=== PATIENT | male | born 1965 | race Caucasian/White ===

== ENCOUNTER 2018-01-27 13:35 | Emergency (ER) | payer SELFPAY ==
[2018-01-27] MEDS ORDERED: Aspirin 325 MG Tab PO ONE (13:48)
[2018-01-27] MEDS ORDERED: Nitroglycerin 0.4 MG Tab.SL SL ONE (13:50)
[2018-01-27] MEDS ORDERED: Sodium Chloride 0.9% 1,000 ML IV ONE (13:51)
--- NOTE | 2018-01-27 13:55 | EDM.PDOC ---
ED HPI GENERAL MEDICAL PROBLEM - General Chief Complaint: Chest Pain Stated Complaint: CHEST PAIN Time Seen by Provider: 01/27/18 13:40 - History of Present Illness INITIAL COMMENTS - FREE TEXT/NARRATIVE: HISTORY AND PHYSICAL: History of present illness: The patient is a 52-year-old male who presents to the ER with chest pressure and left arm tingling. The patient reports he initially presented to the [facility] with the arm tingling. They were concerned about his heart and sent him to the ER. He reports 3-4 day history of chest pressure and tightness with associated tingling in the left arm. He has associated shortness of breath but no nausea, vomiting or diaphoresis. He has no history of trauma or injury to the left shoulder/arm. He has no significant cardiac history and is a nonsmoker. He reports he does not have a significant past medical history. He is not on any medications currently. He does note that he has been very stressed at work lately. Review of systems: As per history of present illness and below otherwise all systems reviewed and negative. Past medical history: As per history of present illness and as reviewed below otherwise noncontributory. Surgical history: As per history of present illness and as reviewed below otherwise noncontributory. Social history: No reported history of drug or alcohol abuse. Family history: As per history of present illness and as reviewed below otherwise noncontributory. Physical exam: HEENT: Atraumatic, normocephalic, pupils reactive, negative for conjunctival pallor or scleral icterus, mucous membranes moist, throat clear, neck supple, nontender, trachea midline. Lungs: Clear to auscultation, breath sounds equal bilaterally, chest nontender. Heart: S1S2, regular, negative for clicks, rubs, or JVD. Abdomen: Soft, nondistended, nontender. Negative for masses or hepatosplenomegaly. Negative for costovertebral tenderness. Pelvis: Stable nontender. Genitourinary: Deferred. Rectal: Deferred. Extremities: Atraumatic, negative for cords or calf pain. Neurovascular unremarkable. Neuro: Awake, alert, oriented. Cranial nerves II through XII unremarkable. Cerebellum unremarkable. Motor and sensory unremarkable throughout. Exam nonfocal. Diagnostics: [EKG, CBC, CMP, troponin, chest x-ray] Therapeutics: [325 mg of aspirin ] Impression: [chest pain] Plan: [Patient's chest pain resolved while in the ER and his initial troponin was negative. He received one time dose of aspirin. He did not require nitro as his chest pain had resolved by the time it was to be given. He was offered admission for observation and ACS rule out, but he declined. He stated he did not want to be admitted. He thinks this was all related to stress at his job and anxiety. He will be discharged home. He should follow-up with his PCP. He should return to the ER if he develops any chest pain again.] Definitive disposition and diagnosis as appropriate pending reevaluation and review of above. chest Pain Score (Numeric/FACES): 3 - Related Data Allergies Allergy/AdvReac Type Severity Reaction Status Date / Time No Known Allergies Allergy Verified 01/27/18 13:46 Home Meds: Home Meds . [No Known Home Meds] 01/27/18 [History] Past Medical History Other Musculoskeletal History: cervical fx 2009 - Past Surgical History Other Neurological Surgeries/Procedures: 2009 ED ROS GENERAL - Review of Systems Review Of Systems: See Below (See dictation) ED EXAM, GENERAL - Physical Exam Exam: See Below (See dictation) Course - Vital Signs Last Recorded V/S: Last Vital Signs Temp 96.4 F 01/27/18 13:47 Pulse 62 01/27/18 14:32 Resp 15 01/27/18 14:32 BP 145/82 H 01/27/18 14:32 Pulse Ox 97 01/27/18 14:32 - Orders/Labs/Meds Orders: Active Orders 24 hr Category Date Time Status EKG 12 Lead [EKG Documentation Completion] [RC] STAT Care 01/27/18 13:51 Active Sodium Chloride 0.9% [Normal Saline] 1,000 ml Med 01/27/18 13:51 Active IV STAT Medication Orders Sodium Chloride (Normal Saline) 1,000 mls @ 125 mls/hr IV STAT ONE Stop: 01/27/18 21:50 Last Admin: 01/27/18 14:03 Dose: 125 mls/hr Labs: Laboratory Tests 01/27/18 01/27/18 Range/Units 13:53 13:53 WBC 6.84 (4.0-11.0) K/uL RBC 5.18 (4.50-5.90) M/uL Hgb 15.5 (13.0-17.0) g/dL Hct 44.3 (38.0-50.0) % MCV 85.5 (80.0-98.0) fL MCH 29.9 (27.0-32.0) pg MCHC 35.0 (31.0-37.0) g/dL RDW Std Deviation 39.7 (28.0-62.0) fl RDW Coeff of Minh 13 (11.0-15.0) % Plt Count 173 (150-400) K/uL MPV 9.90 (7.40-12.00) fL Neut % (Auto) 57.8 (48.0-80.0) % Lymph % (Auto) 31.1 (16.0-40.0) % [place] % (Auto) 10.1 (0.0-15.0) % Eos % (Auto) 0.6 (0.0-7.0) % Baso % (Auto) 0.4 (0.0-1.5) % Neut # (Auto) 4.0 (1.4-5.7) K/uL Lymph # (Auto) 2.1 (0.6-2.4) K/uL [place] # (Auto) 0.7 (0.0-0.8) K/uL Eos # (Auto) 0.0 (0.0-0.7) K/uL Baso # (Auto) 0.0 (0.0-0.1) K/uL Nucleated RBC % 0.0 /100WBC Nucleated RBCs # 0 K/uL Sodium 138 (136-148) mmol/L Potassium 4.1 (3.5-5.1) mmol/L Chloride 105 (98-107) mmol/L Carbon Dioxide 22.9 (21.0-32.0) mmol/L BUN 13 (7.0-18.0) mg/dL Creatinine 0.8 (0.8-1.3) mg/dL Est Cr Clr Drug Dosing 112.43 mL/min Estimated GFR (MDRD) > 60.0 ml/min Glucose 99 (74-106) mg/dL Calcium 8.8 (8.5-10.1) mg/dL Total Bilirubin 0.8 (0.2-1.0) mg/dL AST 14 L (15-37) IU/L ALT 25 (14-63) IU/L Alkaline Phosphatase 56 (46-116) U/L Troponin I < 0.050 (0.000-0.056) ng/mL Total Protein 7.5 (6.4-8.2) g/dL Albumin 3.9 (3.4-5.0) g/dL Globulin 3.6 H (2.0-3.5) g/dL Albumin/Globulin Ratio 1.1 L (1.3-2.8) Meds: Medications Generic Name Dose Route Start Last Admin Trade Name Freq PRN Reason Stop Dose Admin Sodium Chloride 1,000 mls @ 125 mls/hr 01/27/18 13:51 01/27/18 14:03 Normal Saline IV 01/27/18 21:50 125 mls/hr STAT ONE Administration Discontinued Medications Generic Name Dose Route Start Last Admin Trade Name Freq PRN Reason Stop Dose Admin Aspirin 325 mg 01/27/18 13:48 01/27/18 14:04 Aspirin PO 01/27/18 13:49 Not Given ONETIME ONE Aspirin 324 mg 01/27/18 14:01 01/27/18 14:05 Aspirin PO 01/27/18 14:02 324 mg ONETIME ONE Administration Nitroglycerin 0.4 mg 01/27/18 13:50 Nitrostat SL 01/27/18 13:51 ONETIME ONE Departure - Departure Time of Disposition: 15:15 Disposition: Home, Self-Care 01 Condition: Good Clinical Impression: Chest pain Qualifiers: Chest pain type: unspecified Qualified Code(s): R07.9 - Chest pain, unspecified Instructions: Nonspecific Chest Pain, [id number] Forms: ED Department Discharge Additional Instructions: My general discharge The following information is given to patients seen in the emergency department who are being discharged to home. This information is to outline your options for follow-up care. We provide all patients seen in our emergency department with a follow-up referral. The need for follow-up, as well as the timing and circumstances, are variable depending upon the specifics of your emergency department visit. If you don't have a primary care physician on staff, we will provide you with a referral. We always advise you to contact your personal physician following an emergency department visit to inform them of the circumstance of the visit and for follow-up with them and/or the need for any referrals to a consulting specialist. The emergency department will also refer you to a specialist when appropriate. This referral assures that you have the opportunity for follow-up care with a specialist. All of these measure are taken in an effort to provide you with optimal care, which includes your follow-up. Under all circumstances we always encourage you to contact your private physician who remains a resource for coordinating your care. When calling for follow-up care, please make the office aware that this follow-up is from your recent emergency room visit. If for any reason you are refused follow-up, please contact the Emergency Department at and asked to speak to the emergency department charge nurse. My [facility] [address] [place] [id number] Please follow up with your primary care provider. Please return to the ER if you developed chest pain again. - My Orders Last 24 Hours: My Active Orders 01/27/18 13:51 EKG 12 Lead [EKG Documentation Completion] [RC] STAT Sodium Chloride 0.9% [Normal Saline] 1,000 ml IV STAT - Assessment/Plan Last 24 Hours: My Active Orders 01/27/18 13:51 EKG 12 Lead [EKG Documentation Completion] [RC] STAT Sodium Chloride 0.9% [Normal Saline] 1,000 ml IV STAT
[2018-01-27] MEDS ORDERED: Aspirin 81 MG Tab.Chew PO ONE (14:01)
[2018-01-27 14:30] LABS: CHLORIDE,CL 105 mmol/L (98-107); SODIUM,NA 138 mmol/L (136-148)
--- NOTE | 2018-01-27 14:32 | CR ---
EXAMINATION: Portable chest radiograph. HISTORY: Shortness of breath. FINDINGS: The trachea is midline. The cardiomediastinal silhouette is within normal limits. Mild left retrocard iac atelectasis and/or infiltrate. No pleural effusion or pneumothorax. Osseous structures appear unremarkable. IMPRESSION: 1. Mild left retrocardiac infiltrate and/or atelectasis.
[2018-01-27 15:32] VITALS: BP 145/82
== END 2018-01-27 15:27 | disposition home or self-care (01) ==
LOC: MW.ED 13:35
DX: R07.9 Chest pain, unspecified (principal)
CPT/HCPCS: 71045; 80053; 84484; 85025; 93005; 96360; 99285; A9270; J7040; 99283